=== PATIENT | female | born 1950 | race Caucasian/White ===

== ENCOUNTER → 2016-10-10 | Outpatient (CLI) | payer OTHER | LOC: FIMAGING 10:31 | DX: Z12.31 Encounter for screening mammogram for malignant neoplasm of breast (principal); Z80.3 Family history of malignant neoplasm of breast | CPT/HCPCS: G0202 ==

== ENCOUNTER → 2017-10-22 | Outpatient (CLI) | payer OTHER | LOC: FIMAGING 10:35 | PROVIDERS: ATTEND Internal Medicine | DX: Z13.820 Encounter for screening for osteoporosis (principal); M81.0 Age-related osteoporosis without current pathological fracture; Z78.0 Asymptomatic menopausal state ==

== ENCOUNTER 2017-10-27 12:07 | Emergency (ER) | payer OTHER ==
--- NOTE | 2017-10-27 12:22 | CPEKG ---
Heart Rate: 76 RR Interval: 789 P-R Interval: 124 QRSD Interval: 92 QT Interval: 388 QTC Interval: 437 P [place]: 79 QRS [place]: 67 T Wave [place]: 52 EKG Severity - NORMAL ECG - EKG Impression: SINUS RHYTHM Electronically Signed By: Quintin Black 27-Oct-2017 13:37:47
--- NOTE | 2017-10-27 13:09 | EDPHY ---
H & P Time Seen by Provider: 10/27/17 12:56 HPI/ROS: CHIEF COMPLAINT: Chest tightness HISTORY OF PRESENT ILLNESS: 67-year-old woman presents with chest tightness which is been on and off for the past 2 weeks. Last night she had some tingling in her left arm and the chest tightness has been continuous for the last 2 days. It is definitely not exertional and is maybe a little bit worse when she lies down. No short of breath or diaphoresis. No coughing or fever. She does exercise and has been able to go up and down stairs and even go for a run over the last 2 weeks without any change in her usual exercise tolerance. Symptoms mild currently. REVIEW OF SYSTEMS: Eye: no change in vision ENT: no sore throat Cardiac: HPI Pulmonary: no cough or SOB Abdomen: no vomiting, diarrhea, abdominal pain Musculoskeletal: no back pain or leg swelling Skin: no rash Neuro: no headache Constitutional: no fever : no urinary symptoms A comprehensive 10 point review of systems is otherwise negative aside from elements mentioned in the history of present illness. PAST MEDICAL HISTORY: Hypertension, breast biopsy. Negative for high cholesterol or diabetes. Family history: Father with an DE in his 70s, negative for venous thromboembolism Social history: Nonsmoker, no recent trauma or immobilization. General Appearance: Alert and conversant, cooperative. Eyes: No scleral icterus. ENT, Mouth: Normal mucous membranes. Respiratory: Normal respiratory effort, breath sounds equal, lungs are clear to auscultation. Cardiovascular: Regular rate and rhythm. No murmur. Gastrointestinal: Abdomen is soft and non tender. Neurological: Alert, face symmetric, normal motor and sensory in extremities. Skin: Warm and dry, no rashes. Musculoskeletal: No peripheral edema. No calf tenderness. Psychiatric: Not agitated. Emergency Department course/MDM: Low pretest probability for venous thromboembolism. Appears to be low risk by heart score for ACS. Plan for EKG, troponin, chest x-ray and D-dimer. 1348: Labs discussed, stable for outpatient follow-up, patient in agreement. Nonexertional chest symptoms with normal EKG and troponin after 2 days of continuous symptoms. Negative D-dimer. Will follow up with her primary care physician this week regarding blood pressure and any further testing needed, including possibility for stress testing. Smoking Status: Never smoked Constitutional: Initial Vital Signs Temperature (C) 36.5 C 10/27/17 12:12 Heart Rate 92 10/27/17 12:12 Respiratory Rate 16 10/27/17 12:12 Blood Pressure 181/99 H 10/27/17 12:12 O2 Sat (%) 97 10/27/17 12:12 O2 Delivery Mode Room Air Allergies/Adverse Reactions: No Known Allergies Allergy (Unverified 10/27/17 12:12) Home Medications: Medication Instructions Recorded Ambien 10/27/17 NK [No Known Home Meds] 10/27/17 Medical Decision Making - Diagnostics EKG Interpretation: 12-lead EKG interpreted by me; official reading is in trace master. My interpretation is sinus rhythm with no ischemic changes normal intervals. Imaging Results: Imaging Impressions Chest X-Ray 10/27/17 13:09 Impression: Minimal peribronchial thickening that can be seen with airways disease/bronchitis. Differential Diagnosis: Differential diagnosis considered for chest pain including but not limited to myocardial ischemia, aortic dissection, pericarditis, pulmonary embolus, chest wall pain, pleural inflammation and pulmonary infectious causes. - Data Points Laboratory Results: Laboratory Results 10/27/17 12:25 10/27/17 12:25 10/27/17 10/27/17 10/27/17 12:25 12:25 12:25 WBC 4.36 10^3/uL 10^3/uL (3.80-9.50) RBC 4.51 10^6/uL 10^6/uL (4.18-5.33) Hgb 14.4 g/dL g/dL (12.6-16.3) Hct 42.5 % % (38.0-47.0) MCV 94.2 fL fL (81.5-99.8) MCH 31.9 pg pg (27.9-34.1) MCHC 33.9 g/dL g/dL (32.4-36.7) RDW 11.8 % % (11.5-15.2) Plt Count 316 10^3/uL 10^3/uL (150-400) MPV 10.4 fL fL (8.7-11.7) Neut % (Auto) 58.8 % % (39.3-74.2) Lymph % (Auto) 28.9 % % (15.0-45.0) [place] % (Auto) 9.2 % % (4.5-13.0) Eos % (Auto) 1.8 % % (0.6-7.6) Baso % (Auto) 1.1 % % (0.3-1.7) Nucleat RBC Rel Count 0.0 % % (0.0-0.2) Absolute Neuts (auto) 2.56 10^3/uL 10^3/uL (1.70-6.50) Absolute Lymphs (auto) 1.26 10^3/uL 10^3/uL (1.00-3.00) Absolute Monos (auto) 0.40 10^3/uL 10^3/uL (0.30-0.80) Absolute Eos (auto) 0.08 10^3/uL 10^3/uL (0.03-0.40) Absolute Basos (auto) 0.05 10^3/uL 10^3/uL (0.02-0.10) Absolute Nucleated RBC 0.00 10^3/uL 10^3/uL (0-0.01) Immature Gran % 0.2 % % (0.0-1.1) Immature Gran # 0.01 10^3/uL 10^3/uL (0.00-0.10) D-Dimer < 0.27 ug/mLFEU ug/mLFEU (0.00-0.50) Sodium 142 mEq/L mEq/L (135-145) Potassium 4.0 mEq/L mEq/L (3.3-5.0) Chloride 103 mEq/L mEq/L (97-110) Carbon Dioxide 26 mEq/l mEq/l (22-31) Anion Gap 13 mEq/L mEq/L (8-16) BUN 15 mg/dL mg/dL (7-23) Creatinine 0.8 mg/dL mg/dL (0.6-1.0) Estimated GFR > 60 Glucose 102 mg/dL H mg/dL (70-100) Calcium 9.3 mg/dL mg/dL (8.5-10.4) Troponin I 10/27/17 12:22 WBC RBC Hgb Hct MCV MCH MCHC RDW Plt Count MPV Neut % (Auto) Lymph % (Auto) [place] % (Auto) Eos % (Auto) Baso % (Auto) Nucleat RBC Rel Count Absolute Neuts (auto) Absolute Lymphs (auto) Absolute Monos (auto) Absolute Eos (auto) Absolute Basos (auto) Absolute Nucleated RBC Immature Gran % Immature Gran # D-Dimer Sodium Potassium Chloride Carbon Dioxide Anion Gap BUN Creatinine Estimated GFR Glucose Calcium Troponin I < 0.012 ng/mL ng/mL (0.000-0.034) Departure - Departure Disposition: Home, Routine, Self-Care Clinical Impression: Chest tightness Condition: Good Instructions: Chest Pain (ED) Referrals: Maria Guadalupe Rios MD [Primary Care Provider] - 2-3 days, call for appt.
[2017-10-27 13:14] LABS: PLATELET COUNT 316 10^3/uL (150-400)
[2017-10-27 14:14] VITALS: BP 166/79
== END 2017-10-27 14:12 | disposition home or self-care (01) ==
DX: R07.89 Other chest pain (principal); I10 Essential (primary) hypertension

== ENCOUNTER → 2018-11-10 | Outpatient (CLI) | payer OTHER | LOC: CIMAGING 09:23 ==